=== PATIENT | male | born 2000 ===

== ENCOUNTER 2021-10-05 19:13 | Emergency (ER) | payer SELFPAY ==
[2021-10-05 19:20] VITALS: BP 134/93; PULSE 123; RESP 18; TEMP 36.7; O2SAT 98; BMI 29.1
[2021-10-05] MEDS: BUPIVACAINE 0.5% (PF) VIAL 5 ML SUBCUT (21:38)
[2021-10-05] MEDS: DOXYCYCLINE HYCLATE 100 MG TABLET PO (21:38)
[2021-10-05] MEDS: HYDROCODONE/ACET 5/325 PREPACK 1 BOTTLE MISC (22:17)
[2021-10-05 22:23] VITALS: BP 138/76; PULSE 118; RESP 18; O2SAT 97
--- NOTE | 2021-10-06 06:58 | ED.WOUNDLAC ---
HPI - Wound/Laceration General Chief Complaint: Wound/Laceration Stated Complaint: abcess on back-stated to be lanced -Pilondial Time Seen by Provider: 10/05/21 21:22 Source: patient Mode of arrival: Ambulatory History of Present Illness HPI narrative: 20M non smoker without any significant medical history presents at the request of an outside emergency department for evaluation of a pilonidal cyst that is worsened over the past week or so. He denies any systemic symptoms such as fever, chills nor nausea or vomiting. He states that he started developing a painful spot many days ago and is now worse, he denies any history of the same, injury. He denies any spontaneous drainage. He was seen at the outside facility evaluated by the emergency provider and sent here due to concern for possible need for surgical back up. He has no abdominal pain or pain with bowel movements. Related Data Previous Rx's Medication Instructions Recorded doxycycline hyclate 100 mg tablet 100 mg PO BID #20 tab 10/05/21 hydrocodone 5 mg-acetaminophen 325 1 tab PO Q4-6H PRN #10 tab 10/05/21 mg tablet Allergies Allergy/AdvReac Type Severity Reaction Status Date / Time No Known Drug Allergies Allergy Verified 10/05/21 21:41 Review of Systems Review of Systems Narrative: GENERAL: Denies chills, fatigue, malaise, fever, sweats. HEENT: Denies sinus pain, ear pain, sore throat, difficulty swallowing, dizziness. RESPIRATORY: Denies dyspnea, cough, wheezing, hemoptysis, sputum. CARDIOVASCULAR: Denies chest pain, palpitations, orthopnea, edema, GASTROINTESTINAL: Denies nausea, vomiting, abdominal pain, diarrhea, constipation, melena. : Denies dysuria, frequency, incontinence, hematuria, urinary retention. MUSCULOSKELETAL: denies weakness, joint pain, or bony pain SKIN: See HPI NEUROLOGIC: Denies weakness, headache, numbness, change in speech, confusion, seizures, incoordination. PSYCHIATRIC: No concerning psychosocial issues. 12 point review of systems is negative except for those stated above Patient History Social History Smoking Status: Current every day smoker Smoking Status: Current every day smoker Substance Use Type: marijuana Exam Narrative Exam Narrative: GENERAL: [20] year old patient appears stated age. Well-developed patient, in mild distress. HEAD: Atraumatic. Normocephalic. EYES: Pupils equal round and reactive. Extraocular motions intact. No scleral icterus. No injection or drainage. ENT: Nose without bleeding, purulent drainage. Throat without erythema, tonsillar hypertrophy or exudate. Airway patent. NECK: Trachea midline. Non tender CARDIOVASCULAR: Regular rate and rhythm without murmurs, gallops, or rubs. RESPIRATORY: Clear to auscultation. Breath sounds equal bilaterally. No wheezes, rales, or rhonchi. GASTROINTESTINAL: Abdomen soft, non-tender, nondistended. EXTREMITIES: No edema or joint tenderness. BACK: Nontender without deformity or crepitance. No flank tenderness. NEURO: AOx3. SKIN: 2 x 3 cm area of pain, fluctuance and erythema in the pilonidal region with some induration extending laterally on the right side, consistent with infected pilonidal cyst Initial Vital Signs Initial Vital Signs: Vital Signs Temperature 98.1 F 10/05/21 19:20 Pulse Rate 123 H 10/05/21 19:20 Respiratory Rate 18 10/05/21 19:20 Blood Pressure 134/93 H 10/05/21 19:20 Pulse Oximetry 98 10/05/21 19:20 Procedures Abscess I/D I&D #1: Site: back Local Anesthetic: bupivacaine 0.5% Amount of anesthesia used (mL): 6 Technique: incised with #11 blade Amount of fluid expressed (mL): 15 Irrigation: Yes Packing used?: none Course Orders Ordered: Discontinued Medications Hydrocodone Bitart/Acetaminophen (Hydrocodone/Acet 5/325 Prepack) 1 bottle MISC SEEINSTR ONE Stop: 10/05/21 22:12 Last Admin: 10/05/21 22:17 Dose: 1 bottle Documented by: LESTER Bupivacaine HCl (Bupivacaine 0.5% (Pf) Vial) 5 ml SUBCUT NOW ONE Stop: 10/05/21 21:33 Last Admin: 10/05/21 21:38 Dose: 5 ml Documented by: LESTER Doxycycline Hyclate (Doxycycline Hyclate 100 Mg Tablet) 100 mg PO NOW ONE Stop: 10/05/21 21:33 Last Admin: 10/05/21 21:38 Dose: 100 mg Documented by: LESTER MDM - Wound/Laceration MDM Narrative Medical decision making narrative: Patient presents with concern for infected pilonidal cyst. History and physical exam are very reassuring and consistent with this diagnosis. Patient is not septic and has no systemic complaints. Incision and drainage completed at the bedside, no concern for perirectal involvement or other, deeper involvement such that surgical intervention is needed. Importance of follow up is expressed and understood. Return precautions discussed. Discharge Plan Departure Patient Disposition: Home Clinical Impression: Infected pilonidal cyst Instructions: DI for Pilonidal Cyst Drainage or Removal Activity Restrictions/Additional Instructions: *You have been diagnosed with [infected pilonidal cyst with incision and drainage and wound culture. *What to do: *Please continue to take your regular medications as directed. [ x] New medication prescriptions sent to your pharmacy: [ Thursday] [ ] New medication written as a paper prescription [ ] No new medications given *Please follow up with your primary care provider in 2-3 days, call for an appointment. Let them know you were seen in the Emergency Department and that we ask that you be seen in follow up. We will electronically transmit a record of today's note if your PCP is in our system *If you do not have a primary care provider please contact the [facility] Resource line at [phone]. They will ask some questions about your medical history and help get you set up with a doctor in the community. *Return to Emergency Department if you should have any new, worsening or concerning symptoms, such as [fever greater than 101 F, shaking chills, worsening pain, persistent vomiting or other bothersome symptoms] You have been prescribed a short course of narcotic medications. These are potentially dangerous and addictive medications that should be used carefully. While on these medications you cannot drive or operate heavy machinery. Additionally, you cannot sign legal documents or perform any duties such as this. 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 Please understand that we cannot provide further refills of narcotics or controlled substances through the ED and your pain management will need to be through your Primary Care Provider Prescriptions: New hydrocodone-acetaminophen 5-325 mg tablet 1 tab PO Q4-6H PRN (Reason: pain) Qty: 10 0RF doxycycline hyclate 100 mg tablet 100 mg PO BID Qty: 20 0RF Referrals: Gaurav Collado MD [Physician] - Visit Report Forms: Patient Portal/API
== END 2021-10-05 22:24 | disposition home or self-care (01) ==
PROVIDERS: Emergency Provider Emergency Medicine
DX: L05.91 Pilonidal cyst without abscess (principal)
CPT/HCPCS: 10060; 87070; 87075; 87077; 87186; 87205; 99283